=== PATIENT | male | born 1940 | race Caucasian/White ===

== ENCOUNTER 2018-01-10 07:16 | Outpatient (CLI) | payer OTHER ==
[~2018-01-10 07:16] MED LIST: ASA81 MG PO; ATENOLOL25 MG PO; DIOVAN HCT 320/1 TA1 PO; DIOVAN HCT 320/1 TA2; LIPITOR20 MG; OMEPRAZOLE20 MG PO; PLAVIX75 MG; SIMVASTATIN5 MG PO; TOPROL XL100 MG
== END 2018-01-10 07:31 | disposition home or self-care (01) ==
LOC: LAB 07:16
DX: I11.9 Hypertensive heart disease without heart failure (principal); E78.2 Mixed hyperlipidemia; E03.8 Other specified hypothyroidism; E11.9 Type 2 diabetes mellitus without complications

== ENCOUNTER 2018-01-24 08:42 | Outpatient (CLI) | payer OTHER | END 2018-01-24 09:07 | disposition home or self-care (01) | LOC: LAB 08:42 | DX: C18.0 Malignant neoplasm of cecum (principal); D64.89 Other specified anemias; D12.0 Benign neoplasm of cecum; C20 Malignant neoplasm of rectum ==

== ENCOUNTER 2018-04-29 06:26 | Outpatient (CLI) | payer OTHER | END 2018-04-29 06:33 | disposition home or self-care (01) | LOC: LAB 06:26 | DX: D50.8 Other iron deficiency anemias (principal); E03.8 Other specified hypothyroidism; E78.2 Mixed hyperlipidemia; I11.9 Hypertensive heart disease without heart failure; E56.8 Deficiency of other vitamins; N39.0 Urinary tract infection, site not specified; Z12.11 Encounter for screening for malignant neoplasm of colon; R19.5 Other fecal abnormalities; E55.9 Vitamin D deficiency, unspecified; N19 Unspecified kidney failure; E11.9 Type 2 diabetes mellitus without complications; R80.8 Other proteinuria ==

== ENCOUNTER 2018-07-21 10:21 | Outpatient (CLI) | payer OTHER | END 2018-07-21 16:00 | disposition home or self-care (01) | LOC: SONOGRAMA 10:21 | DX: M25.521 Pain in right elbow (principal); M25.511 Pain in right shoulder ==

== ENCOUNTER 2018-07-25 07:05 | Outpatient (CLI) | payer OTHER | END 2018-07-25 10:47 | disposition home or self-care (01) | LOC: LAB 07:05 | DX: D50.8 Other iron deficiency anemias (principal); E03.8 Other specified hypothyroidism; E78.2 Mixed hyperlipidemia; I11.9 Hypertensive heart disease without heart failure; E56.8 Deficiency of other vitamins; N39.0 Urinary tract infection, site not specified; Z12.11 Encounter for screening for malignant neoplasm of colon; R19.5 Other fecal abnormalities; E55.9 Vitamin D deficiency, unspecified; N19 Unspecified kidney failure; E11.9 Type 2 diabetes mellitus without complications; R80.8 Other proteinuria; K92.1 Melena ==

== ENCOUNTER 2018-07-27 11:38 | Outpatient (CLI) | payer OTHER | END 2018-07-27 11:40 | disposition home or self-care (01) | LOC: LAB 11:38 | DX: D50.8 Other iron deficiency anemias (principal); E03.8 Other specified hypothyroidism; E78.2 Mixed hyperlipidemia; I11.9 Hypertensive heart disease without heart failure; E56.8 Deficiency of other vitamins; N39.0 Urinary tract infection, site not specified; Z12.11 Encounter for screening for malignant neoplasm of colon; R19.5 Other fecal abnormalities; E55.9 Vitamin D deficiency, unspecified; N19 Unspecified kidney failure; E11.9 Type 2 diabetes mellitus without complications; R80.8 Other proteinuria; K92.1 Melena ==

== ENCOUNTER 2018-11-28 07:26 | Outpatient (CLI) | payer OTHER | END 2018-11-28 07:36 | disposition home or self-care (01) | LOC: LAB 07:26 | DX: D50.8 Other iron deficiency anemias (principal); E03.8 Other specified hypothyroidism; E78.2 Mixed hyperlipidemia; I11.9 Hypertensive heart disease without heart failure; E56.8 Deficiency of other vitamins; N39.0 Urinary tract infection, site not specified; Z12.11 Encounter for screening for malignant neoplasm of colon; R19.5 Other fecal abnormalities; E55.9 Vitamin D deficiency, unspecified; N19 Unspecified kidney failure; E11.9 Type 2 diabetes mellitus without complications; R80.8 Other proteinuria; C18.8 Malignant neoplasm of overlapping sites of colon; K92.1 Melena ==

== ENCOUNTER 2019-03-04 06:46 | Outpatient (CLI) | payer OTHER | END 2019-03-04 06:52 | disposition home or self-care (01) | LOC: LAB 06:46 | DX: D50.8 Other iron deficiency anemias (principal); E03.8 Other specified hypothyroidism; E78.2 Mixed hyperlipidemia; I11.9 Hypertensive heart disease without heart failure; E56.8 Deficiency of other vitamins; N39.0 Urinary tract infection, site not specified; Z12.11 Encounter for screening for malignant neoplasm of colon; E55.9 Vitamin D deficiency, unspecified; N19 Unspecified kidney failure; E11.9 Type 2 diabetes mellitus without complications; R80.8 Other proteinuria; C18.0 Malignant neoplasm of cecum; K92.1 Melena ==

== ENCOUNTER 2019-03-04 07:45 | Outpatient (CLI) | payer OTHER | END 2019-03-04 07:49 | disposition home or self-care (01) | LOC: RAD 07:45 | DX: I11.9 Hypertensive heart disease without heart failure (principal); R06.02 Shortness of breath ==

== ENCOUNTER 2019-06-05 07:13 | Outpatient (CLI) | payer OTHER | END 2019-06-05 07:28 | disposition home or self-care (01) | LOC: LAB 07:13 | DX: D50.8 Other iron deficiency anemias (principal); E03.8 Other specified hypothyroidism; E78.2 Mixed hyperlipidemia; I11.9 Hypertensive heart disease without heart failure; E56.8 Deficiency of other vitamins; N39.0 Urinary tract infection, site not specified; Z12.11 Encounter for screening for malignant neoplasm of colon; R19.5 Other fecal abnormalities; E55.9 Vitamin D deficiency, unspecified; N19 Unspecified kidney failure; E11.9 Type 2 diabetes mellitus without complications; R80.8 Other proteinuria; C18.0 Malignant neoplasm of cecum ==

== ENCOUNTER → 2019-09-04 07:29 | Outpatient (CLI) | payer OTHER | END | disposition home or self-care (01) | LOC: LAB 07:29 | DX: D50.8 Other iron deficiency anemias (principal); E03.8 Other specified hypothyroidism; E78.2 Mixed hyperlipidemia; I11.9 Hypertensive heart disease without heart failure; E56.8 Deficiency of other vitamins; N39.0 Urinary tract infection, site not specified; Z12.11 Encounter for screening for malignant neoplasm of colon; E55.9 Vitamin D deficiency, unspecified; N19 Unspecified kidney failure; E11.9 Type 2 diabetes mellitus without complications; R80.8 Other proteinuria; C18.0 Malignant neoplasm of cecum; K92.1 Melena ==

== ENCOUNTER 2019-12-04 07:13 | Outpatient (CLI) | payer OTHER | END 2019-12-04 07:20 | disposition home or self-care (01) | LOC: LAB 07:13 | DX: D50.8 Other iron deficiency anemias (principal); E03.8 Other specified hypothyroidism; E78.2 Mixed hyperlipidemia; I11.9 Hypertensive heart disease without heart failure; E56.8 Deficiency of other vitamins; N39.0 Urinary tract infection, site not specified; Z12.11 Encounter for screening for malignant neoplasm of colon; N19 Unspecified kidney failure; E11.9 Type 2 diabetes mellitus without complications; R80.8 Other proteinuria; C18.0 Malignant neoplasm of cecum; K92.1 Melena ==

== ENCOUNTER 2020-03-04 07:27 | Outpatient (CLI) | payer OTHER | END 2020-03-04 07:36 | disposition home or self-care (01) | LOC: LAB 07:27 | DX: D50.8 Other iron deficiency anemias (principal); E03.8 Other specified hypothyroidism; E78.2 Mixed hyperlipidemia; I11.9 Hypertensive heart disease without heart failure; E56.8 Deficiency of other vitamins; N39.0 Urinary tract infection, site not specified; Z12.11 Encounter for screening for malignant neoplasm of colon; E55.9 Vitamin D deficiency, unspecified; N19 Unspecified kidney failure; E11.9 Type 2 diabetes mellitus without complications; R80.8 Other proteinuria; C18.0 Malignant neoplasm of cecum; K92.1 Melena; B99.8 Other infectious disease ==

== ENCOUNTER → 2020-03-28 06:53 | Outpatient (CLI) | payer OTHER | END | disposition home or self-care (01) | LOC: LAB 06:53 | DX: N39.0 Urinary tract infection, site not specified (principal) ==

== ENCOUNTER 2020-04-14 07:02 | Outpatient (CLI) | payer OTHER | END 2020-04-14 07:08 | disposition home or self-care (01) | LOC: LAB 07:02 | PROVIDERS: ATTEND Internal Medicine Geriatric Medicine | DX: N39.0 Urinary tract infection, site not specified (principal) ==

== ENCOUNTER → 2020-06-01 07:07 | Outpatient (CLI) | payer OTHER | END | disposition home or self-care (01) | LOC: LAB 07:07 | PROVIDERS: ATTEND Internal Medicine Geriatric Medicine | DX: R80.8 Other proteinuria (principal); D50.8 Other iron deficiency anemias; E03.8 Other specified hypothyroidism; E78.2 Mixed hyperlipidemia; I11.9 Hypertensive heart disease without heart failure; E56.8 Deficiency of other vitamins; N39.0 Urinary tract infection, site not specified; Z12.11 Encounter for screening for malignant neoplasm of colon; E55.9 Vitamin D deficiency, unspecified; N19 Unspecified kidney failure; E11.9 Type 2 diabetes mellitus without complications; K92.1 Melena ==

== ENCOUNTER 2020-09-04 06:25 | Outpatient (CLI) | payer OTHER | END 2020-09-04 06:30 | disposition home or self-care (01) | LOC: LAB 06:25 | PROVIDERS: ATTEND Internal Medicine Geriatric Medicine | DX: D50.8 Other iron deficiency anemias (principal); E03.8 Other specified hypothyroidism; E78.2 Mixed hyperlipidemia; I11.9 Hypertensive heart disease without heart failure; E56.8 Deficiency of other vitamins; N39.0 Urinary tract infection, site not specified; Z12.11 Encounter for screening for malignant neoplasm of colon; E55.9 Vitamin D deficiency, unspecified; N19 Unspecified kidney failure; E11.9 Type 2 diabetes mellitus without complications; R80.8 Other proteinuria; C18.9 Malignant neoplasm of colon, unspecified; K92.1 Melena ==

== ENCOUNTER 2020-09-28 01:46 | Emergency (ER) | payer OTHER ==
[~2020-09-28] VITALS: Ht 170.2 cm; Wt 98.0 kg
[2020-09-28] MEDS ORDERED: MUPIROCIN22 GM TOP (03:14)
[2020-09-28] MEDS ORDERED: DUI500 PO (03:14)
== END 2020-09-28 03:25 | disposition home or self-care (01) ==
LOC: ER 01:46
DX: L03.011 Cellulitis of right finger (principal); L02.511 Cutaneous abscess of right hand

== ENCOUNTER 2020-12-02 07:52 | Outpatient (CLI) | payer OTHER ==
[~2020-12-02 07:52] MED LIST changes: +DUI500 PO; +MUPIROCIN22 GM TOP
== END 2020-12-02 07:57 | disposition home or self-care (01) ==
LOC: LAB 07:52
PROVIDERS: ATTEND Internal Medicine Geriatric Medicine
DX: D50.8 Other iron deficiency anemias (principal); E03.8 Other specified hypothyroidism; E78.2 Mixed hyperlipidemia; I11.9 Hypertensive heart disease without heart failure; E56.8 Deficiency of other vitamins; N39.0 Urinary tract infection, site not specified; Z12.11 Encounter for screening for malignant neoplasm of colon; E55.9 Vitamin D deficiency, unspecified; N19 Unspecified kidney failure; E11.9 Type 2 diabetes mellitus without complications; R80.8 Other proteinuria; C18.0 Malignant neoplasm of cecum; K92.1 Melena

== ENCOUNTER → 2021-01-15 | Outpatient (CLI) | payer OTHER | END | disposition home or self-care (01) | LOC: PPH VACUNA | PROVIDERS: ATTEND Emergency Medicine Pediatric Emergency Medicine | DX: Z23 Encounter for immunization (principal) ==

== ENCOUNTER 2021-02-05 17:40 | Outpatient (CLI) | payer OTHER | END 2021-02-05 17:41 | disposition home or self-care (01) | LOC: PPH VACUNA 17:40 | PROVIDERS: ATTEND Emergency Medicine Pediatric Emergency Medicine | DX: Z23 Encounter for immunization (principal) ==

== ENCOUNTER 2021-03-06 06:34 | Outpatient (CLI) | payer OTHER | END 2021-03-06 15:00 | disposition home or self-care (01) | LOC: LAB 06:34 | PROVIDERS: ATTEND Internal Medicine Geriatric Medicine | DX: D50.9 Iron deficiency anemia, unspecified (principal); E03.9 Hypothyroidism, unspecified; E78.2 Mixed hyperlipidemia; I11.9 Hypertensive heart disease without heart failure; E56.8 Deficiency of other vitamins; N39.0 Urinary tract infection, site not specified; Z12.11 Encounter for screening for malignant neoplasm of colon; E55.9 Vitamin D deficiency, unspecified; N19 Unspecified kidney failure; E11.9 Type 2 diabetes mellitus without complications; R80.9 Proteinuria, unspecified; C18.9 Malignant neoplasm of colon, unspecified; K92.1 Melena ==

== ENCOUNTER 2021-06-02 07:26 | Outpatient (CLI) | payer OTHER | END 2021-06-02 07:33 | disposition home or self-care (01) | LOC: LAB 07:26 | PROVIDERS: ATTEND Internal Medicine Geriatric Medicine | DX: D50.8 Other iron deficiency anemias (principal); E03.8 Other specified hypothyroidism; E78.2 Mixed hyperlipidemia; I11.9 Hypertensive heart disease without heart failure; E56.8 Deficiency of other vitamins; N39.0 Urinary tract infection, site not specified; Z12.11 Encounter for screening for malignant neoplasm of colon; E55.9 Vitamin D deficiency, unspecified; N19 Unspecified kidney failure; E11.9 Type 2 diabetes mellitus without complications; R80.8 Other proteinuria; C18.0 Malignant neoplasm of cecum; K92.1 Melena ==

== ENCOUNTER 2021-09-01 07:34 | Outpatient (CLI) | payer OTHER | END 2021-09-01 07:39 | disposition home or self-care (01) | LOC: LAB 07:34 | PROVIDERS: ATTEND Internal Medicine Geriatric Medicine | DX: D50.8 Other iron deficiency anemias (principal); E03.8 Other specified hypothyroidism; E78.2 Mixed hyperlipidemia; I11.9 Hypertensive heart disease without heart failure; E56.8 Deficiency of other vitamins; N39.0 Urinary tract infection, site not specified; Z12.11 Encounter for screening for malignant neoplasm of colon; R19.5 Other fecal abnormalities; E55.9 Vitamin D deficiency, unspecified; N19 Unspecified kidney failure; E11.9 Type 2 diabetes mellitus without complications ==

== ENCOUNTER 2021-11-06 09:00 | Outpatient (CLI) | payer OTHER | END 2021-11-06 09:30 | disposition home or self-care (01) | LOC: PPH VACUNA 09:00 | PROVIDERS: ATTEND Emergency Medicine Pediatric Emergency Medicine | DX: Z23 Encounter for immunization (principal) ==

== ENCOUNTER 2021-12-07 07:28 | Outpatient (CLI) | payer OTHER | END 2021-12-07 07:29 | disposition home or self-care (01) | LOC: LAB 07:28 | PROVIDERS: ATTEND Internal Medicine Geriatric Medicine | DX: D50.8 Other iron deficiency anemias (principal); E03.8 Other specified hypothyroidism; E78.2 Mixed hyperlipidemia; I11.9 Hypertensive heart disease without heart failure; E56.8 Deficiency of other vitamins; N39.0 Urinary tract infection, site not specified; Z12.11 Encounter for screening for malignant neoplasm of colon; R19.5 Other fecal abnormalities; E55.9 Vitamin D deficiency, unspecified; N19 Unspecified kidney failure; E11.9 Type 2 diabetes mellitus without complications; R80.8 Other proteinuria ==

== ENCOUNTER 2022-03-05 06:39 | Outpatient (CLI) | payer OTHER | END 2022-03-05 06:45 | disposition home or self-care (01) | LOC: LAB 06:39 | PROVIDERS: ATTEND Internal Medicine Geriatric Medicine | DX: D50.9 Iron deficiency anemia, unspecified (principal); E03.9 Hypothyroidism, unspecified; E78.2 Mixed hyperlipidemia; I11.9 Hypertensive heart disease without heart failure; E56.8 Deficiency of other vitamins; N39.0 Urinary tract infection, site not specified; Z12.11 Encounter for screening for malignant neoplasm of colon; R19.5 Other fecal abnormalities; E55.9 Vitamin D deficiency, unspecified; N19 Unspecified kidney failure; E11.9 Type 2 diabetes mellitus without complications; R80.9 Proteinuria, unspecified ==

== ENCOUNTER 2022-03-06 11:43 | Outpatient (CLI) | payer OTHER | END 2022-03-06 11:44 | disposition home or self-care (01) | LOC: LAB 11:43 | PROVIDERS: ATTEND Internal Medicine Geriatric Medicine | DX: D50.9 Iron deficiency anemia, unspecified (principal); E03.9 Hypothyroidism, unspecified; E78.2 Mixed hyperlipidemia; I11.9 Hypertensive heart disease without heart failure; E66.8 Other obesity; N39.0 Urinary tract infection, site not specified; Z12.11 Encounter for screening for malignant neoplasm of colon; R19.5 Other fecal abnormalities; E55.9 Vitamin D deficiency, unspecified; N19 Unspecified kidney failure; E11.9 Type 2 diabetes mellitus without complications; R80.9 Proteinuria, unspecified ==

== ENCOUNTER 2022-06-01 07:20 | Outpatient (CLI) | payer OTHER | END 2022-06-01 07:24 | disposition home or self-care (01) | LOC: LAB 07:20 | PROVIDERS: ATTEND Internal Medicine Geriatric Medicine | DX: D50.9 Iron deficiency anemia, unspecified (principal); E03.9 Hypothyroidism, unspecified; E78.2 Mixed hyperlipidemia; I11.9 Hypertensive heart disease without heart failure; E56.8 Deficiency of other vitamins; N39.0 Urinary tract infection, site not specified; R19.5 Other fecal abnormalities; E55.9 Vitamin D deficiency, unspecified; N19 Unspecified kidney failure; E11.9 Type 2 diabetes mellitus without complications; R80.9 Proteinuria, unspecified; Z12.11 Encounter for screening for malignant neoplasm of colon ==

== ENCOUNTER → 2022-12-12 06:31 | Outpatient (CLI) | payer OTHER | END | disposition home or self-care (01) | LOC: LAB 06:31 | PROVIDERS: ATTEND Internal Medicine Geriatric Medicine | DX: D50.9 Iron deficiency anemia, unspecified (principal); E03.9 Hypothyroidism, unspecified; E78.2 Mixed hyperlipidemia; I11.9 Hypertensive heart disease without heart failure; E56.8 Deficiency of other vitamins; N39.0 Urinary tract infection, site not specified; Z12.11 Encounter for screening for malignant neoplasm of colon; R19.5 Other fecal abnormalities; E55.9 Vitamin D deficiency, unspecified; N19 Unspecified kidney failure; E11.9 Type 2 diabetes mellitus without complications ==

== ENCOUNTER → 2023-03-10 06:48 | Outpatient (CLI) | payer OTHER | END | disposition home or self-care (01) | LOC: LAB 06:48 | PROVIDERS: ATTEND Internal Medicine Geriatric Medicine | DX: D50.9 Iron deficiency anemia, unspecified (principal); E03.9 Hypothyroidism, unspecified; I11.9 Hypertensive heart disease without heart failure; E78.2 Mixed hyperlipidemia; E56.8 Deficiency of other vitamins; N39.0 Urinary tract infection, site not specified; E55.9 Vitamin D deficiency, unspecified; R19.5 Other fecal abnormalities; N19 Unspecified kidney failure; E11.9 Type 2 diabetes mellitus without complications ==

== ENCOUNTER → 2023-06-16 07:04 | Outpatient (CLI) | payer OTHER | END | disposition home or self-care (01) | LOC: LAB 07:04 | PROVIDERS: ATTEND Internal Medicine Geriatric Medicine | DX: D50.9 Iron deficiency anemia, unspecified (principal); E03.9 Hypothyroidism, unspecified; E78.2 Mixed hyperlipidemia; I11.9 Hypertensive heart disease without heart failure; E56.8 Deficiency of other vitamins; N39.0 Urinary tract infection, site not specified; Z12.11 Encounter for screening for malignant neoplasm of colon; R19.5 Other fecal abnormalities; E55.9 Vitamin D deficiency, unspecified; N19 Unspecified kidney failure; E11.9 Type 2 diabetes mellitus without complications ==

== ENCOUNTER → 2023-06-18 11:45 | Outpatient (CLI) | payer OTHER | END | disposition home or self-care (01) | LOC: LAB 11:45 | PROVIDERS: ATTEND Internal Medicine Geriatric Medicine | DX: Z12.11 Encounter for screening for malignant neoplasm of colon (principal) ==

== ENCOUNTER 2023-09-13 07:34 | Outpatient (CLI) | payer OTHER ==
[2023-09-13 09:09] LABS: HEMATOCRIT 43.6 % (39.0-48.0); HEMOGLOBIN 15.1 g/dL (13-16.00); MEAN CELL VOLUME 89.4 fL (80.0-100.00); MEAN CORPUSCULAR HGB CONC 34.7 g/dl (32.0-36.0); PLATELET COUNT 200 K/uL (150-450); RED BLOOD COUNT 4.88 M/uL (4.00-6.00); RED CELL DISTRIBUTION WIDTH 13.8 % (11.5-14.5)
[2023-09-13 10:33] LABS: ALBUMIN 3.7 gm/dL (3.4-5.0); BILIRUBIN TOTAL 0.95 mg/dL (0.3-1.2); CALCIUM 9.1 mg/dL (8.5-10.1); CHOL HDL RATIO 2.6 (0-5.0); CREATININE SERUM 1.22 mg/dL (0.70-1.30); GFR 56.87; GLOBULINA 3.2 G/DL (2.4-3.5); POTASSIUM 3.85 mEq/L (3.5-5.1); TOTAL PROTEIN 6.9 gm/dL (6.4-8.2); TSH 1.51 uIU/mL (0.358-3.74)
[2023-09-13 12:11] LABS: URINE APPEARANCE Clear; URINE BILIRRUBIN Negative (NEGATIVE); URINE BLOOD Negative; URINE COLOR Yellow; URINE GLUCOSE Negative (NEGATIVE); URINE LEUKOCYTE Negative; URINE NITRATE Negative; URINE PROTEIN Negative (NEGATIVE)
[2023-09-13 12:52] LABS: URINE BACTERIA 26.4 uL (0.0-1933); URINE RBC 3.5 uL (0.0-20.8); URINE WBC 6.1 uL (0.0-23.2)
[2023-09-13 12:56] LABS: URINE EPITHELIAL CELLS 0.7 uL (0.0-38.8)
== END 2023-09-13 07:35 | disposition home or self-care (01) ==
LOC: LAB 07:34
PROVIDERS: ATTEND Internal Medicine Geriatric Medicine
DX: D50.9 Iron deficiency anemia, unspecified (principal); E03.9 Hypothyroidism, unspecified; E78.2 Mixed hyperlipidemia; I11.9 Hypertensive heart disease without heart failure; E56.8 Deficiency of other vitamins; N39.0 Urinary tract infection, site not specified; Z12.11 Encounter for screening for malignant neoplasm of colon; R19.5 Other fecal abnormalities; E55.9 Vitamin D deficiency, unspecified; N19 Unspecified kidney failure; E11.9 Type 2 diabetes mellitus without complications

== ENCOUNTER 2023-12-20 07:04 | Outpatient (CLI) | payer OTHER ==
[2023-12-20 08:17] LABS: PH,URINE 7.5 (5.0-8.0); URINE APPEARANCE Clear; URINE BILIRRUBIN Negative (NEGATIVE); URINE BLOOD Negative; URINE COLOR Yellow; URINE GLUCOSE Negative (NEGATIVE); URINE LEUKOCYTE Negative; URINE NITRATE Negative; URINE PROTEIN Negative (NEGATIVE); URINE UROBILINOGEN 0.2 E.U./dl
[2023-12-20 08:23] LABS: URINE BACTERIA 17.6 uL (0.0-1933); URINE RBC 17.2 uL (0.0-20.8)
[2023-12-20 09:03] LABS: URINE WBC 1.6 uL (0.0-23.2)
[2023-12-20 09:10] LABS: HEMOGLOBIN 15.5 g/dL (13-16.00); MEAN CELL VOLUME 90.5 fL (80.0-100.00); MEAN CORPUSCULAR HEMOGLOBIN 30.4 pg (27.00-32.0); MEAN CORPUSCULAR HGB CONC 33.6 g/dl (32.0-36.0); PLATELET COUNT 203 K/uL (150-450); RED BLOOD COUNT 5.09 M/uL (4.00-6.00); RED CELL DISTRIBUTION WIDTH 14.1 % (11.5-14.5)
[2023-12-20 09:33] LABS: ALBUMIN 4.1 gm/dL (3.4-5.0); CALCIUM 9.4 mg/dL (8.5-10.1); CHOL HDL RATIO 2.5 (0-5.0); CREATININE SERUM 1.27 mg/dL (0.70-1.30); GFR 54.29; GLOBULINA 2.9 G/DL (2.4-3.5); POTASSIUM 4.2 mEq/L (3.5-5.1); TSH 1.64 uIU/mL (0.358-3.74)
== END 2023-12-20 07:13 | disposition home or self-care (01) ==
LOC: LAB 07:04
PROVIDERS: ATTEND Internal Medicine Geriatric Medicine
DX: D50.9 Iron deficiency anemia, unspecified (principal); E03.9 Hypothyroidism, unspecified; E78.2 Mixed hyperlipidemia; I11.9 Hypertensive heart disease without heart failure; E56.8 Deficiency of other vitamins; N39.0 Urinary tract infection, site not specified; Z12.11 Encounter for screening for malignant neoplasm of colon; R19.5 Other fecal abnormalities; E55.9 Vitamin D deficiency, unspecified; N19 Unspecified kidney failure; E11.9 Type 2 diabetes mellitus without complications

== ENCOUNTER 2025-08-30 21:01 | Inpatient (IN) | payer OTHER ==
[~2025-08-30] VITALS: Ht 170.2 cm; Wt 108.9 kg
--- NOTE | 2025-08-30 21:24 | NUR ---
SE REALIZA EKG Y SE UBICA A PACIENTE EN CAMA #1 DE ICU 2, SE CONECTA A MONITOR CARDIACO, OXIMETRIA DE PULSO Y SE NOTIFICA A .
--- NOTE | 2025-08-30 21:24 | NUR ---
SE RECIBE PACIENTE ALERTA Y ORIENTADO X 3 ESFERAS EN AMBULANCIA EN COMPANIA DE PARAMEDICOS LOS CUALES INDICAN QUE FAMILIAR DE PACIENTE LLAMO LA AMBULANCIA PORQUE PACIENTE SUFRIO OSCAR CAIDA EN CASE HOGAR. PARAMEDICOS INDICAN QUE AL LLEGAR PACIENTE ESTABA EN EL SUELO Y PRESENTABA DIFICULTAD AL RESPIRAR. REFIEREN QUE ADMINISTRAR ATROVENT, SOLUMEDROL 125MG Y VASOTEC 1.25MG POR VENOPUNCION EN BRAZO DERECHO.
[2025-08-30] MEDS ORDERED: IPRATROPIUM BROMIDE 0.5 MG/2.5 ML AMPUL.NEB IH SCH (21:40)
[2025-08-30] MEDS ORDERED: LEVALBUTEROL HCL 1.25 MG/3 ML SOLUTION IH SCH (21:40)
[2025-08-30] MEDS ORDERED: INSULIN LISPRO 1,000 UNIT/10 ML UNITS SUBCUTANEO PRN (21:45)
[2025-08-30] MEDS ORDERED: LORazepam 2 MG/ML VIAL IV PRN (21:45)
[2025-08-30] MEDS ORDERED: THIAMINE HCL 100 MG/ML 2 ML VIAL IV ONE (21:45)
[2025-08-30] MEDS ORDERED: FAMOtidine 10 MG/ML (4ML VIAL) IV ONE (21:45)
[2025-08-30] MEDS ORDERED: MULTIVIT INFUSN,ADULT 4,VIT K 10 ML VIAL IV ONE (21:45)
[2025-08-30] MEDS ORDERED: FOLIC ACID 5 MG/ML VIAL IV ONE (21:45)
[2025-08-30] MEDS ORDERED: CEFTRIAXONE SODIUM 1,000 MG VIAL IV ONE (21:45)
[2025-08-30 21:57] LABS: BASO % 0.6 % (0.1-1.2); EOS # 0.24 (0.04-0.54); EOS % 3.6 % (0.7-7.0); LYMPH # 1.43 (1.18-3.74); LYMPH % 21.6 % (19.3-53.1); MEAN PLATELET VOLUME 10.00 fl (9.4-12.4); MONO # 0.55 (0.24-0.82); MONO % 8.3 % (4.7-12.5); NEUT # 4.32 (1.56-6.13); NEUT % 65.4 % (34.0-71.1); RED CELL DISTRIBUTION WIDTH 14.1 % (11.6-14.4)
[2025-08-30 22:17] LABS: INR 1.07
[2025-08-30 22:23] LABS: ALT/SGPT 31.0 U/L (12-78); AST/SGOT 36.0 U/L (15-37); BILIRUBIN TOTAL 0.95 mg/dL (0.3-1.2); BUN CREA RATIO 5.0 (7.0-25.0); CREATININE SERUM 1.05 mg/dL (0.70-1.30); GFR 67.29; GLOBULINA 3.0 G/DL (2.4-3.5); GLUCOSE FASTING 103.0 mg/dL (65-100); OSMOLALITY SERUM 284.0 MOSM/KG (275-295)
[2025-08-30] MEDS ORDERED: NITROGLYCERIN IN 5 % DEXTROSE 250 ML IV SCH (22:42)
[2025-08-30] MEDS ORDERED: TICAGRELOR 90 MG TABLET PO ONE (22:45)
--- NOTE | 2025-08-30 22:48 | NUR ---
SE RECIBE PACIENTE EN AREA DE ICU #2, ALERTA Y ORIENTADO X3. SE COLOCA EN CAMA #1 POR SAMSON ABBOTT RN. ESTA CONECTA A MONITOR CARDICO CON SATUROMETRO, CANULA NASAL A 3 LITROS Y COLECTA MUESTRAS CON MEDIDAS ASEPTICAS CORRESPONDIENTES. BARANDAS ELEVADAS POR CASE SEGURIDAD. SE MONITOREA POR CAMBIOS SIGNIFICATIVOS.
[2025-08-30] MEDS ORDERED: THIAMINE HCL 100 MG/ML 2 ML VIAL ONE (23:10)
[2025-08-30] MEDS ORDERED: FAMOTIDINE/PF 20 MG/2 ML VIAL ONE ×2 (23:11→23:31)
[2025-08-30] MEDS ORDERED: CEFTRIAXONE SODIUM 1,000 MG VIAL ONE (23:11)
[2025-08-31] VITALS (11 sets, daily range): BP systolic 115–169; BP diastolic 73–92; O2SAT 93–97
--- NOTE | 2025-08-31 00:12 | NUR ---
2300 SE RECIBE A PTE EN ICU 2 CAMA 1. SE OBSERVA A PTE EN POSICION SEMI-PANDEY. SE OBSERVA A PTE CONECTADO A MONITOR CARDIACO Y OXIMETRIA DE PULSO. PTE CON ZEINA INTACTO CON N/C A 3 LT/MIN. SE ON VENOPUNCION PATENTE EN MANO RT. RECIBIENDO IVF. 2330 SE ADMINISTRA MEDICAMENTO SHANA ORDEN MEDICA Y BAJO MEDIDAS ASEPTICAS. NO SE OBSERVA REACCION ADVERSA AL MOMENTO. SE NOTIFICA TERAPIAS PENDIENTES A TR. PTE PENDIENTE A CT.
[2025-08-31] MEDS ORDERED: LEVALBUTEROL HCL 0.63 MG/3 ML SOLUTION IH ONE (00:14)
[2025-08-31 00:17] LABS: COVID-19 AG NEGATIVE (NEGATIVE)
[2025-08-31] MEDS ORDERED: NITROGLYCERIN IN 5 % DEXTROSE 50 MG/250 ML BOTTLE IV ONE (01:19)
[2025-08-31 01:24] LABS: URINE APPEARANCE Clear; URINE BILIRRUBIN Negative (NEGATIVE); URINE BLOOD Negative; URINE COLOR Yellow; URINE GLUCOSE Negative (NEGATIVE); URINE KETONE Negative (NEGATIVE); URINE LEUKOCYTE Negative; URINE NITRATE Negative; URINE PROTEIN Negative (NEGATIVE); URINE UROBILINOGEN 1.0 E.U./dl
[2025-08-31 01:30] LABS: URINE BACTERIA 17.9 uL (0.0-1933)
[2025-08-31 01:35] LABS: URINE EPITHELIAL CELLS 1.3 uL (0.0-38.8); URINE RBC 1.4 uL (0.0-20.8); URINE WBC 1.3 uL (0.0-23.2)
[2025-08-31 01:36] LABS: URINE CAST 0.14 uL (0.0-1.40)
[2025-08-31 02:25] LABS: COCAINE NEGATIVE (NEGATIVE); METHADONE NEGATIVE (NEGATIVE); OPIATES NEGATIVE (NEGATIVE); THC ( Cannabinoids) NEGATIVE (NEGATIVE)
--- NOTE | 2025-08-31 07:00 | NUR ---
SE RECIBE PTE ALERTA, DESORIENTADO Y COMBATIVO. EN CAMA BAJA EN UNIDAD DE CRITICO. RN'S DE TURNO ANTERIOR INTERVINIENDO CON PTE YA QUE SE DESCANALIZO Y SE NENO EL CARDOZA. RN'S CANALIZAN [place], RESTRINGEN PTE SHANA ORDEN MEDICA E INSERTAN CARDOZA BAJO MEDIDAS ASEPTICAS. SE CONECTO [place] A MONITOR CARDIACO Y OXIMETRIA DE PULSO CONTINUA. PTE CON VENTURY MASK AL 50%. PTE RECIBIENDO POR BRAZO RT DRIP DE TRIDIL A 3MLS/HR. SE ADMINISTRA ATIVAN IV 2MG JUNTO A RN ARBIZU. SE MANTIENE EN OBSERVACION POR CAMBIOS
[2025-08-31] MEDS ORDERED: LORazepam 2 MG/ML VIAL ONE (07:05)
[2025-08-31] MEDS ORDERED: LEVALBUTEROL HCL 1.25 MG/3 ML SOLUTION IH ONE (08:56)
[2025-08-31] MEDS ORDERED: IPRATROPIUM BROMIDE 0.5 MG/2.5 ML AMPUL.NEB IH ONE (08:56)
[2025-08-31] MEDS ORDERED: HALOPERIDOL LACTATE 5 MG/ML AMPUL IM PRN (09:45)
[2025-08-31] MEDS ORDERED: ONDANSETRON HCL 2 MG/ML VIAL IV PRN (09:45)
[2025-08-31] MEDS ORDERED: PIPERACILLIN/TAZOBACTAM SODIUM 3.375 GM VIAL IV ONE (10:45)
[2025-08-31] MEDS ORDERED: PIPERACILLIN/TAZOBACTAM SODIUM 3.375 GM VIAL IV SCH (12:00)
[2025-08-31] MEDS ORDERED: HALOPERIDOL LACTATE 5 MG/ML AMPUL ONE (12:20)
[2025-08-31] MEDS ORDERED: IPRATROPIUM BROMIDE 0.5 MG/2.5 ML AMPUL.NEB IH SCH ×2 (13:00→14:33)
[2025-08-31] MEDS ORDERED: PERMETHRIN 60 GM TUBE TOP SCH (17:00)
[2025-08-31] MEDS ORDERED: VANCOMYCIN HCL 5 MG/ML REDILUIDO IV SCH (17:00)
[2025-08-31] MEDS ORDERED: NITROGLYCERIN IN 5 % DEXTROSE 250 ML IV SCH (19:00)
[2025-08-31] MEDS ORDERED: ENOXAPARIN SODIUM 100 MG/ML SYRINGE SUBCUTANEO SCH (21:00)
[2025-08-31] MEDS ORDERED: ENOXAPARIN SODIUM 80 MG/0.8 ML SYRINGE SUBCUTANEO SCH (21:00)
[2025-09-01] VITALS (12 sets, daily range): BP systolic 131–166; BP diastolic 70–100; O2SAT 90–98
[2025-09-01 06:37] LABS: BASO % 0.3 % (0.1-1.2); EOS # 0.01 (0.04-0.54); EOS % 0.1 % (0.7-7.0); LYMPH # 0.96 (1.18-3.74); LYMPH % 8.6 % (19.3-53.1); MEAN PLATELET VOLUME 10.40 fl (9.4-12.4); MONO # 0.97 (0.24-0.82); MONO % 8.7 % (4.7-12.5); NEUT # 9.19 (1.56-6.13); NEUT % 82.1 % (34.0-71.1); RED CELL DISTRIBUTION WIDTH 14.0 % (11.6-14.4)
[2025-09-01 07:02] LABS: ALT/SGPT 31.0 U/L (12-78); AST/SGOT 36.0 U/L (15-37); BILIRUBIN TOTAL 1.71 mg/dL (0.3-1.2); BUN CREA RATIO 10.0 (7.0-25.0); CREATININE SERUM 1.13 mg/dL (0.70-1.30); GFR 61.82; GLOBULINA 2.8 G/DL (2.4-3.5); GLUCOSE FASTING 128.0 mg/dL (65-100); LDH 350.0 U/L (87-241); OSMOLALITY SERUM 292.0 MOSM/KG (275-295)
[2025-09-01] MEDS ORDERED: ATENOLOL 25 MG TABLET PO SCH (09:00)
[2025-09-01] MEDS ORDERED: AMLODIPINE BESYLATE 5 MG TABLET PO SCH (09:00)
[2025-09-01] MEDS ORDERED: CLOPIDOGREL BISULFATE 75 MG TABLET PO SCH (09:00)
[2025-09-01] MEDS ORDERED: LOSARTAN POTASSIUM 100 MG TABLET PO SCH (09:00)
[2025-09-01] MEDS ORDERED: ATORVASTATIN CALCIUM 40 MG TABLET PO SCH (09:00)
[2025-09-01] MEDS ORDERED: ASPIRIN 325 MG TABLET PO SCH (09:00)
[2025-09-02] VITALS (8 sets, daily range): BP systolic 103–144; BP diastolic 58–90; O2SAT 88–99
[2025-09-02] MEDS ORDERED: THIAMINE HCL 100 MG/ML 2 ML VIAL IV SCH (17:00)
[2025-09-03] VITALS (9 sets, daily range): BP systolic 111–142; BP diastolic 60–74; O2SAT 93–100
[2025-09-03 06:59] LABS: BASO % 0.5 % (0.1-1.2); EOS # 0.08 (0.04-0.54); EOS % 0.7 % (0.7-7.0); LYMPH # 1.11 (1.18-3.74); LYMPH % 9.6 % (19.3-53.1); MEAN PLATELET VOLUME 10.80 fl (9.4-12.4); MONO # 1.01 (0.24-0.82); MONO % 8.7 % (4.7-12.5); NEUT # 9.27 (1.56-6.13); NEUT % 80.1 % (34.0-71.1); RED CELL DISTRIBUTION WIDTH 14.2 % (11.6-14.4)
[2025-09-03 08:37] LABS: ALT/SGPT 36.0 U/L (12-78); AST/SGOT 49.0 U/L (15-37); BILIRUBIN TOTAL 1.65 mg/dL (0.3-1.2); BUN CREA RATIO 13.0 (7.0-25.0); CREATININE SERUM 1.26 mg/dL (0.70-1.30); GFR 54.52; GLOBULINA 3.7 G/DL (2.4-3.5); GLUCOSE FASTING 124.0 mg/dL (65-100); OSMOLALITY SERUM 293.0 MOSM/KG (275-295)
[2025-09-04 01:33] VITALS: BP 160/85; O2SAT 96
[2025-09-04 09:19] VITALS: O2SAT 96
[2025-09-04 10:23] VITALS: BP 149/92; BP 180/60; O2SAT 95; O2SAT 97
[2025-09-04 12:17] VITALS: O2SAT 90
[2025-09-04 14:47] LABS: BASO % 0.2 % (0.1-1.2); EOS # 0.00 (0.04-0.54); EOS % 0.0 % (0.7-7.0); LYMPH # 0.91 (1.18-3.74); LYMPH % 5.4 % (19.3-53.1); MEAN PLATELET VOLUME 10.60 fl (9.4-12.4); MONO # 1.54 (0.24-0.82); MONO % 9.2 % (4.7-12.5); NEUT # 14.25 (1.56-6.13); NEUT % 84.8 % (34.0-71.1); RED CELL DISTRIBUTION WIDTH 13.9 % (11.6-14.4)
[2025-09-04 15:09] LABS: ALT/SGPT 41.0 U/L (12-78); AST/SGOT 52.0 U/L (15-37); BILIRUBIN TOTAL 1.45 mg/dL (0.3-1.2); BUN CREA RATIO 19.0 (7.0-25.0); CREATININE SERUM 1.63 mg/dL (0.70-1.30); GFR 40.51; GLOBULINA 3.4 G/DL (2.4-3.5); GLUCOSE FASTING 135.0 mg/dL (65-100); OSMOLALITY SERUM 307.0 MOSM/KG (275-295)
[2025-09-04 17:27] VITALS: O2SAT 98
[2025-09-04 19:21] VITALS: BP 150/80
[2025-09-04] MEDS ORDERED: QUETIAPINE FUMARATE 25 MG TABLET PO SCH (20:36)
[2025-09-05] VITALS (12 sets, daily range): BP systolic 60–160; BP diastolic 37–100; O2SAT 94–100
[2025-09-05 06:25] LABS: BASO % 0.3 % (0.1-1.2); EOS # 0.02 (0.04-0.54); EOS % 0.2 % (0.7-7.0); LYMPH # 1.31 (1.18-3.74); LYMPH % 10.5 % (19.3-53.1); MEAN PLATELET VOLUME 11.00 fl (9.4-12.4); MONO # 1.45 (0.24-0.82); MONO % 11.6 % (4.7-12.5); NEUT # 9.62 (1.56-6.13); NEUT % 76.8 % (34.0-71.1); RED CELL DISTRIBUTION WIDTH 13.6 % (11.6-14.4)
[2025-09-05 06:54] LABS: ALT/SGPT 39.0 U/L (12-78); AST/SGOT 45.0 U/L (15-37); BILIRUBIN TOTAL 1.23 mg/dL (0.3-1.2); BUN CREA RATIO 29.0 (7.0-25.0); CREATININE SERUM 1.5 mg/dL (0.70-1.30); GFR 44.59; GLOBULINA 3.1 G/DL (2.4-3.5); GLUCOSE FASTING 109.0 mg/dL (65-100)
[2025-09-05 07:55] LABS: OSMOLALITY SERUM 313.0 MOSM/KG (275-295)
[2025-09-05] MEDS ORDERED: NOREPINEPHRINE BITARTRATE 4 MG in DEXTROSE 5 % IN WATER 250 ML IV SCH (19:00)
[2025-09-05 20:41] LABS: BASO % 0.3 % (0.1-1.2); EOS # 0.02 (0.04-0.54); EOS % 0.1 % (0.7-7.0); LYMPH # 1.31 (1.18-3.74); LYMPH % 7.4 % (19.3-53.1); MEAN PLATELET VOLUME 10.90 fl (9.4-12.4); MONO # 2.42 (0.24-0.82); NEUT # 13.73 (1.56-6.13); NEUT % 77.8 % (34.0-71.1); RED CELL DISTRIBUTION WIDTH 13.6 % (11.6-14.4)
[2025-09-05 20:44] LABS: MONO % 13.7 % (4.7-12.5)
[2025-09-05 21:01] LABS: ALT/SGPT 41.0 U/L (12-78); AST/SGOT 53.0 U/L (15-37); BILIRUBIN TOTAL 1.23 mg/dL (0.3-1.2); BUN CREA RATIO 24.0 (7.0-25.0); CREATININE SERUM 2.21 mg/dL (0.70-1.30); GFR 28.51; GLOBULINA 3.1 G/DL (2.4-3.5); GLUCOSE FASTING 138.0 mg/dL (65-100); OSMOLALITY SERUM 314.0 MOSM/KG (275-295)
[2025-09-05] MEDS ORDERED: MIDAZOLAM HCL 2 MG/2 ML VIAL IV PUSH STA (21:37)
[2025-09-06] VITALS (18 sets, daily range): BP systolic 60–150; BP diastolic 37–75; O2SAT 96–100
[2025-09-06 00:41] LABS: BASO % 0.3 % (0.1-1.2); EOS # 0.00 (0.04-0.54); EOS % 0.0 % (0.7-7.0); LYMPH # 1.20 (1.18-3.74); LYMPH % 7.7 % (19.3-53.1); MEAN PLATELET VOLUME 11.00 fl (9.4-12.4); MONO # 1.68 (0.24-0.82); MONO % 10.7 % (4.7-12.5); NEUT # 12.61 (1.56-6.13); NEUT % 80.7 % (34.0-71.1); RED CELL DISTRIBUTION WIDTH 13.8 % (11.6-14.4)
[2025-09-06 01:26] LABS: ALT/SGPT 42.0 U/L (12-78); AST/SGOT 64.0 U/L (15-37); BILIRUBIN TOTAL 0.9 mg/dL (0.3-1.2); BUN CREA RATIO 21.0 (7.0-25.0); CREATININE SERUM 2.78 mg/dL (0.70-1.30); GFR 21.88; GLOBULINA 2.9 G/DL (2.4-3.5); GLUCOSE FASTING 145.0 mg/dL (65-100); OSMOLALITY SERUM 318.0 MOSM/KG (275-295)
[2025-09-06 03:05] LABS: URINE APPEARANCE Cloudy; URINE BILIRRUBIN Small (NEGATIVE); URINE BLOOD Large; URINE COLOR Orange; URINE GLUCOSE Negative (NEGATIVE); URINE KETONE Negative (NEGATIVE); URINE LEUKOCYTE Small; URINE NITRATE Negative; URINE UROBILINOGEN 0.2 E.U./dl
[2025-09-06 03:09] LABS: URINE BACTERIA 15.6 uL (0.0-1933); URINE EPITHELIAL CELLS 7.6 uL (0.0-38.8); URINE RBC 2364.4 uL (0.0-20.8); URINE WBC 35.0 uL (0.0-23.2)
[2025-09-06 03:31] LABS: URINE CAST 0.14 uL (0.0-1.40); URINE PROTEIN 100 (NEGATIVE)
[2025-09-06] MEDS ORDERED: VANCOMYCIN HCL 5 MG/ML REDILUIDO IV SCH (05:00)
[2025-09-06] MEDS ORDERED: POLYVINYL ALCOHOL 15 ML DROPS OP SCH (09:00)
[2025-09-06] MEDS ORDERED: CHLORHEXIDINE GLUCONATE 15ML BRUSH KIT MM SCH (09:00)
[2025-09-06] MEDS ORDERED: ANIDULAFUNGIN 100 MG VIAL IV ONE (20:30)
[2025-09-06] MEDS ORDERED: MEROPENEM 500 MG/VIAL VIAL IV SCH (21:00)
[2025-09-07 04:00] VITALS: BP 88/57; O2SAT 100
[2025-09-07 06:25] LABS: BASO % 0.3 % (0.1-1.2); EOS # 0.02 (0.04-0.54); EOS % 0.1 % (0.7-7.0); LYMPH # 1.37 (1.18-3.74); LYMPH % 10.1 % (19.3-53.1); MEAN PLATELET VOLUME 11.20 fl (9.4-12.4); MONO # 1.88 (0.24-0.82); NEUT # 10.18 (1.56-6.13); NEUT % 74.9 % (34.0-71.1); RED CELL DISTRIBUTION WIDTH 13.6 % (11.6-14.4)
[2025-09-07 06:43] LABS: MONO % 13.8 % (4.7-12.5)
[2025-09-07 07:14] VITALS: BP 101/70; O2SAT 100
[2025-09-07 08:07] LABS: ALT/SGPT 56.0 U/L (12-78); AST/SGOT 168.0 U/L (15-37); BILIRUBIN TOTAL 0.84 mg/dL (0.3-1.2); BUN CREA RATIO 23.0 (7.0-25.0); CREATININE SERUM 3.48 mg/dL (0.70-1.30); GFR 16.88; GLOBULINA 3.0 G/DL (2.4-3.5); GLUCOSE FASTING 100.0 mg/dL (65-100)
[2025-09-07 08:08] LABS: OSMOLALITY SERUM 331.0 MOSM/KG (275-295)
[2025-09-07 08:10] LABS: CKMB 10.6 NG/ML (0.5-3.6)
[2025-09-07] MEDS ORDERED: SODIUM CHLORIDE 0.45 % 1,000 ML IV SCH (08:30)
[2025-09-07] MEDS ORDERED: OCTREOTIDE ACETATE 1,000 MCG/5 ML VIAL IJ SCH (09:00)
[2025-09-07 09:34] LABS: CORTISOL 35.7 ug/dl
[2025-09-07] MEDS ORDERED: DEXTROSE 5%-WATER 1,000ML IV.SOLN IV SCH (10:00)
[2025-09-07] MEDS ORDERED: PANTOPRAZOLE SODIUM 80 MG in 0.9 % SODIUM CHLORIDE 100 ML IV SCH (10:15)
[2025-09-07] MEDS ORDERED: POTASSIUM CHLORIDE IN WATER 40 MEQ/100 ML PIGGYBAG IV NR (10:30)
[2025-09-07 12:00] VITALS: BP 106/53; O2SAT 97
[2025-09-07] MEDS ORDERED: OCTREOTIDE ACETATE 1,250 MCG in 0.9 % SODIUM CHLORIDE 250 ML IV SCH (12:00)
[2025-09-07 15:37] VITALS: BP 106/53; O2SAT 100
[2025-09-07] MEDS ORDERED: ANIDULAFUNGIN 100 MG VIAL IV SCH (17:00)
[2025-09-07] MEDS ORDERED: NYSTATIN 30 GM,SILVER SULFADIAZINE 50 GM,ZINC OXIDE 30 GM TOP SCH (17:59)
[2025-09-07 20:00] VITALS: BP 108/81; O2SAT 100
[2025-09-07 23:04] VITALS: BP 125/54; O2SAT 100
[2025-09-08 04:00] VITALS: BP 126/91; O2SAT 100
[2025-09-08 07:25] VITALS: BP 142/59; O2SAT 100
[2025-09-08 07:31] LABS: BASO % 0.4 % (0.1-1.2); EOS # 0.02 (0.04-0.54); EOS % 0.2 % (0.7-7.0); LYMPH # 1.37 (1.18-3.74); LYMPH % 11.0 % (19.3-53.1); MEAN PLATELET VOLUME 11.80 fl (9.4-12.4); MONO # 1.40 (0.24-0.82); MONO % 11.2 % (4.7-12.5); NEUT # 9.54 (1.56-6.13); NEUT % 76.6 % (34.0-71.1); RED CELL DISTRIBUTION WIDTH 13.7 % (11.6-14.4)
[2025-09-08 08:01] LABS: BUN CREA RATIO 33.0 (7.0-25.0); CREATININE SERUM 2.2 mg/dL (0.70-1.30); GFR 28.66
[2025-09-08 08:02] LABS: OSMOLALITY SERUM 334.0 MOSM/KG (275-295)
[2025-09-08 08:07] LABS: GLUCOSE FASTING 224.0 mg/dL (65-100)
[2025-09-08 12:00] VITALS: BP 115/91; O2SAT 100
[2025-09-08 15:07] VITALS: BP 113/72; O2SAT 100
[2025-09-08] MEDS ORDERED: PROPOFOL 100 ML IV SCH (18:00)
[2025-09-08 20:00] VITALS: BP 90/52; O2SAT 100
[2025-09-08 22:00] VITALS: BP 102/69; O2SAT 100
[2025-09-09] VITALS (8 sets, daily range): BP systolic 103–137; BP diastolic 52–897; O2SAT 98–100
[2025-09-09] MEDS ORDERED: VANCOMYCIN HCL 5 MG/ML REDILUIDO IV SCH (05:00)
[2025-09-09 06:52] LABS: BASO % 0.3 % (0.1-1.2); EOS # 0.12 (0.04-0.54); EOS % 1.1 % (0.7-7.0); LYMPH # 1.51 (1.18-3.74); LYMPH % 13.5 % (19.3-53.1); MEAN PLATELET VOLUME 11.90 fl (9.4-12.4); MONO # 1.23 (0.24-0.82); MONO % 11.0 % (4.7-12.5); NEUT # 8.23 (1.56-6.13); NEUT % 73.2 % (34.0-71.1); RED CELL DISTRIBUTION WIDTH 13.7 % (11.6-14.4)
[2025-09-09 08:07] LABS: ALT/SGPT 37.0 U/L (12-78); AST/SGOT 74.0 U/L (15-37); BILIRUBIN TOTAL 0.56 mg/dL (0.3-1.2); BUN CREA RATIO 37.0 (7.0-25.0); CREATININE SERUM 1.58 mg/dL (0.70-1.30); GFR 41.99; GLOBULINA 2.6 G/DL (2.4-3.5); GLUCOSE FASTING 199.0 mg/dL (65-100)
[2025-09-09 08:10] LABS: OSMOLALITY SERUM 322.0 MOSM/KG (275-295); PHOSPHOKINASE CREATININE 1016.0 U/L (39-308)
[2025-09-09] MEDS ORDERED: POTASSIUM CHLORIDE 20MEQ/100ML H2O PB IV NR (11:45)
[2025-09-09] MEDS ORDERED: RACEPINEPHRINE HCL 0.5 ML AMPUL IH ONE ×2 (11:49→12:30)
[2025-09-09 14:03] LABS: BUN CREA RATIO 32.0 (7.0-25.0); CHOL HDL RATIO 4.4 (0-5.0); CREATININE SERUM 1.58 mg/dL (0.70-1.30); GFR 41.99; GLUCOSE FASTING 186.0 mg/dL (65-100); HDL 30.0 mg/dl (40-60); LDL 63.0 mg/dl (0-130); OSMOLALITY SERUM 318.0 MOSM/KG (275-295); VLDL 37.0 (0-39)
[2025-09-09] MEDS ORDERED: AMINO ACIDS 4.25%/DEXTROSE 10% 2,000 ML CENTRAL SCH (17:00)
[2025-09-09] MEDS ORDERED: AA 5 % NO.6/DEXTROSE 15 % 2,000 ML CENTRAL SCH (17:00)
[2025-09-09] MEDS ORDERED: ACETAZOLAMIDE 250 MG TABLET PO SCH (18:42)
[2025-09-09] MEDS ORDERED: METHYLPREDNISOLONE SOD SUCC 40 MG VIAL IV SCH (18:49)
[2025-09-09 19:32] LABS: ALT/SGPT 36.0 U/L (12-78); AST/SGOT 62.0 U/L (15-37); BILIRUBIN TOTAL 0.65 mg/dL (0.3-1.2); BUN CREA RATIO 37.0 (7.0-25.0); CREATININE SERUM 1.3 mg/dL (0.70-1.30); GFR 52.59; GLOBULINA 2.5 G/DL (2.4-3.5); GLUCOSE FASTING 150.0 mg/dL (65-100)
[2025-09-09 19:33] LABS: OSMOLALITY SERUM 315.0 MOSM/KG (275-295)
[2025-09-09 19:38] LABS: PHOSPHOKINASE CREATININE 724.0 U/L (39-308)
[2025-09-09] MEDS ORDERED: MEROPENEM 500 MG/VIAL VIAL IV SCH (21:00)
[2025-09-09] MEDS ORDERED: FAT EMULSIONS 250 ML IV SCH (21:00)
[2025-09-09] MEDS ORDERED: IPRATROPIUM BROMIDE 0.5 MG/2.5 ML AMPUL.NEB IH SCH (21:00)
[2025-09-09 22:36] LABS: ob POSITIVE (NEGATIVE)
[2025-09-10] MEDS ORDERED: LEVALBUTEROL HCL 1.25 MG/3 ML SOLUTION IH SCH (01:00)
[2025-09-10] MEDS ORDERED: LEVALBUTEROL HCL 0.63 MG/3 ML SOLUTION IH ONE (01:07)
[2025-09-10 04:00] VITALS: BP 109/74; O2SAT 100
[2025-09-10] MEDS ORDERED: VANCOMYCIN HCL 5 MG/ML REDILUIDO IV SCH ×2 (05:00→19:45)
[2025-09-10 07:43] VITALS: BP 107/62; O2SAT 100
[2025-09-10 07:46] LABS: BASO % 0.3 % (0.1-1.2); EOS # 0.01 (0.04-0.54); EOS % 0.1 % (0.7-7.0); LYMPH # 0.64 (1.18-3.74); LYMPH % 5.8 % (19.3-53.1); MEAN PLATELET VOLUME 11.70 fl (9.4-12.4); MONO # 0.35 (0.24-0.82); MONO % 3.2 % (4.7-12.5); NEUT # 9.47 (1.56-6.13); NEUT % 86.5 % (34.0-71.1); RED CELL DISTRIBUTION WIDTH 13.2 % (11.6-14.4)
[2025-09-10 08:04] LABS: BUN CREA RATIO 31.0 (7.0-25.0); CREATININE SERUM 1.32 mg/dL (0.70-1.30); GFR 51.67; GLUCOSE FASTING 172.0 mg/dL (65-100); OSMOLALITY SERUM 310.0 MOSM/KG (275-295)
[2025-09-10 10:17] LABS: BAND MAN 1.0 %; LYMPHOCYTE MAN 3.0 %; MONOCYTE MAN 2.0 %; NEUTROPHILS MAN 91.0 %
[2025-09-10 12:00] VITALS: BP 123/72; O2SAT 100
[2025-09-10] MEDS ORDERED: OCTREOTIDE ACETATE 1,250 MCG in 0.9 % SODIUM CHLORIDE 250 ML IV SCH (12:00)
[2025-09-10] MEDS ORDERED: OCTREOTIDE ACETATE 5MCG/ML REDILUIDO IV SCH (13:00)
[2025-09-10] MEDS ORDERED: ACETAZOLAMIDE SODIUM 500 MG VIAL IV SCH (13:00)
[2025-09-10] MEDS ORDERED: WATER IV SCH (13:30)
[2025-09-10] MEDS ORDERED: OCTREOTIDE ACETATE IV SCH (13:30)
[2025-09-10] MEDS ORDERED: DEXTROSE 5% IV SCH (13:30)
[2025-09-10 15:19] VITALS: BP 129/56; O2SAT 95
[2025-09-10] MEDS ORDERED: AMINO ACIDS 4.25%/DEXTROSE 10% 1,000 ML CENTRAL SCH (17:00)
[2025-09-10 20:00] VITALS: BP 120/64; O2SAT 100
[2025-09-10 23:47] VITALS: BP 105/60; O2SAT 100
[2025-09-11 04:00] VITALS: BP 121/63; O2SAT 100
[2025-09-11 07:44] VITALS: BP 128/91; O2SAT 96
[2025-09-11 12:00] VITALS: BP 127/82; O2SAT 96
[2025-09-11] MEDS ORDERED: INSULIN NPH HUMAN ISOPHANE 1,000 UNITS/10 ML UNITS SUBCUTANEO SCH (13:00)
[2025-09-11 15:20] VITALS: BP 114/67; O2SAT 100
[2025-09-11 20:00] VITALS: BP 133/61; O2SAT 100
[2025-09-11 23:09] LABS: BASO % 0.3 % (0.1-1.2); EOS # 0.02 (0.04-0.54); EOS % 0.2 % (0.7-7.0); LYMPH # 1.38 (1.18-3.74); LYMPH % 11.7 % (19.3-53.1); MEAN PLATELET VOLUME 11.30 fl (9.4-12.4); MONO # 0.94 (0.24-0.82); MONO % 8.0 % (4.7-12.5); NEUT # 8.98 (1.56-6.13); NEUT % 76.1 % (34.0-71.1); RED CELL DISTRIBUTION WIDTH 14.3 % (11.6-14.4)
[2025-09-11 23:13] VITALS: BP 121/73; O2SAT 99
[2025-09-11 23:30] LABS: BUN CREA RATIO 30.0 (7.0-25.0); CREATININE SERUM 1.09 mg/dL (0.70-1.30); GFR 64.45; GLUCOSE FASTING 180.0 mg/dL (65-100); OSMOLALITY SERUM 312.0 MOSM/KG (275-295)
[2025-09-11] MEDS ORDERED: DEXTROSE 10 % IN WATER 1,000 ML IV SCH (23:45)
[2025-09-12] MEDS ORDERED: POTASSIUM CHLORIDE IN WATER 100 ML IV SCH (01:00)
[2025-09-12 06:39] LABS: BASO % 0.3 % (0.1-1.2); EOS # 0.07 (0.04-0.54); EOS % 0.7 % (0.7-7.0); LYMPH # 1.28 (1.18-3.74); LYMPH % 12.1 % (19.3-53.1); MEAN PLATELET VOLUME 11.60 fl (9.4-12.4); MONO # 0.89 (0.24-0.82); MONO % 8.4 % (4.7-12.5); NEUT # 7.88 (1.56-6.13); NEUT % 74.3 % (34.0-71.1); RED CELL DISTRIBUTION WIDTH 14.2 % (11.6-14.4)
[2025-09-12 07:06] LABS: ALT/SGPT 64.0 U/L (12-78); AST/SGOT 78.0 U/L (15-37); BILIRUBIN TOTAL 0.59 mg/dL (0.3-1.2); BUN CREA RATIO 30.0 (7.0-25.0); CHOL HDL RATIO 4.3 (0-5.0); CREATININE SERUM 0.99 mg/dL (0.70-1.30); GFR 72.02; GLOBULINA 2.4 G/DL (2.4-3.5); HDL 27.0 mg/dl (40-60); LDL 54.0 mg/dl (0-130); VLDL 35.0 (0-39)
[2025-09-12 07:08] LABS: INR 1.01
[2025-09-12 07:13] LABS: OSMOLALITY SERUM 309.0 MOSM/KG (275-295)
[2025-09-12 07:14] LABS: GLUCOSE FASTING 260.0 mg/dL (65-100)
[2025-09-12 07:23] LABS: BAND MAN 2.0 %; LYMPHOCYTE MAN 9.0 %; MONOCYTE MAN 6.0 %; NEUTROPHILS MAN 83.0 %
[2025-09-12 07:45] VITALS: BP 147/74; O2SAT 100
[2025-09-12 12:00] VITALS: BP 98/71; O2SAT 100
[2025-09-12] MEDS ORDERED: INSULIN NPH HUMAN ISOPHANE 1,000 UNITS/10 ML UNITS SUBCUTANEO SCH (13:00)
[2025-09-12 15:17] VITALS: BP 103/68; O2SAT 96
[2025-09-12 20:00] VITALS: BP 127/68; O2SAT 98
[2025-09-12] MEDS ORDERED: PANTOPRAZOLE SODIUM 80 MG in 0.9 % SODIUM CHLORIDE 100 ML IV SCH (20:45)
[2025-09-12 23:09] VITALS: BP 128/78; O2SAT 100
[2025-09-13 04:00] VITALS: BP 116/70; O2SAT 100
[2025-09-13 07:07] VITALS: BP 105/73; O2SAT 99
[2025-09-13 08:44] LABS: UREA CLEARANCE 34.8 ML/MIN
[2025-09-13] MEDS ORDERED: LEVALBUTEROL HCL 0.63 MG/3 ML SOLUTION IH NR (09:00)
[2025-09-13] MEDS ORDERED: IPRATROPIUM BROMIDE 0.5 MG/2.5 ML AMPUL.NEB IH NR (09:00)
[2025-09-13] MEDS ORDERED: IPRATROPIUM BROMIDE 0.5 MG/2.5 ML AMPUL.NEB IH SCH (14:00)
[2025-09-13] MEDS ORDERED: LEVALBUTEROL HCL 0.63 MG/3 ML SOLUTION IH SCH (14:00)
[2025-09-13 15:37] VITALS: BP 153/78; O2SAT 100
[2025-09-13 20:00] VITALS: BP 119/85; O2SAT 97
[2025-09-13] MEDS ORDERED: AMIODARONE HCL 900 MG/500 ML KIT IV ONE (21:09)
[2025-09-13] MEDS ORDERED: AMIODARONE HCL 50 MG/ML AMPUL IV ONE ×2 (21:09→22:15)
[2025-09-13 22:00] VITALS: BP 123/80; O2SAT 100
[2025-09-13] MEDS ORDERED: AMIODARONE HCL 900 MG in DEXTROSE 5 % IN WATER 500 ML IV SCH (22:15)
[2025-09-13 23:26] VITALS: BP 118/70; O2SAT 94
[2025-09-14] VITALS (20 sets, daily range): BP systolic 103–133; BP diastolic 55–95; O2SAT 95–100
[2025-09-14 06:53] LABS: BASO % 0.5 % (0.1-1.2); EOS # 0.34 (0.04-0.54); EOS % 3.4 % (0.7-7.0); LYMPH # 1.36 (1.18-3.74); LYMPH % 13.7 % (19.3-53.1); MEAN PLATELET VOLUME 12.00 fl (9.4-12.4); MONO # 0.80 (0.24-0.82); MONO % 8.1 % (4.7-12.5); NEUT # 6.89 (1.56-6.13); NEUT % 69.5 % (34.0-71.1); RED CELL DISTRIBUTION WIDTH 14.0 % (11.6-14.4)
[2025-09-14 07:16] LABS: ALT/SGPT 45.0 U/L (12-78); AST/SGOT 42.0 U/L (15-37); BILIRUBIN TOTAL 0.98 mg/dL (0.3-1.2); BUN CREA RATIO 27.0 (7.0-25.0); CREATININE SERUM 0.99 mg/dL (0.70-1.30); GFR 72.02; GLOBULINA 2.5 G/DL (2.4-3.5); GLUCOSE FASTING 140.0 mg/dL (65-100); OSMOLALITY SERUM 300.0 MOSM/KG (275-295)
[2025-09-14 07:28] LABS: BAND MAN 6.0 %; EOSINOPHIL MAN 2.0 %; LYMPHOCYTE MAN 9.0 %; METAMYELOCYTE 1.0 %; MONOCYTE MAN 7.0 %; NEUTROPHILS MAN 74.0 %
[2025-09-14] MEDS ORDERED: CHLORHEXIDINE GLUCONATE 120 ML BOTTLE TOP ONE (08:13)
[2025-09-14] MEDS ORDERED: QUETIAPINE FUMARATE 25 MG TABLET PO SCH (09:00)
[2025-09-14] MEDS ORDERED: POTASSIUM PHOS,M-BASIC-D-BASIC 3 MM/ML VIAL IV SCH (11:00)
[2025-09-14] MEDS ORDERED: AMIODARONE HCL 200 MG TABLET PO SCH (18:15)
[2025-09-15 04:00] VITALS: BP 110/66; O2SAT 96
[2025-09-15 07:03] VITALS: BP 126/73; O2SAT 100
[2025-09-15 07:14] LABS: BUN CREA RATIO 24.0 (7.0-25.0); CREATININE SERUM 0.99 mg/dL (0.70-1.30); GFR 72.02; GLUCOSE FASTING 108.0 mg/dL (65-100)
[2025-09-15 07:26] LABS: OSMOLALITY SERUM 304.0 MOSM/KG (275-295)
[2025-09-15] MEDS ORDERED: AMIODARONE HCL 200 MG TABLET PO SCH (09:00)
[2025-09-15 12:14] VITALS: BP 111/71; O2SAT 100
[2025-09-15 15:30] VITALS: BP 102/68; O2SAT 100
[2025-09-15] MEDS ORDERED: DEXTROSE 5 % IN WATER 1,000 ML IV SCH (18:00)
[2025-09-15 20:00] VITALS: BP 118/66; O2SAT 99
[2025-09-15 23:13] VITALS: BP 122/8; O2SAT 98
[2025-09-16 07:06] VITALS: BP 130/78; O2SAT 100
[2025-09-16 12:00] VITALS: BP 125/79; O2SAT 100
[2025-09-16 15:46] VITALS: BP 126/87; O2SAT 100
[2025-09-16 20:00] VITALS: BP 126/87; O2SAT 100
[2025-09-16 23:34] VITALS: BP 135/70; O2SAT 100
[2025-09-17 04:00] VITALS: BP 122/86; O2SAT 97
[2025-09-17 07:04] VITALS: BP 142/99
[2025-09-17 12:00] VITALS: BP 127/87; O2SAT 100
[2025-09-17 15:10] VITALS: BP 112/81; O2SAT 99
[2025-09-17 20:00] VITALS: BP 127/74; O2SAT 97
[2025-09-17 23:34] VITALS: BP 127/74; O2SAT 99
[2025-09-18 04:00] VITALS: BP 130/94; O2SAT 100
[2025-09-18 07:47] VITALS: BP 128/68; O2SAT 100
[2025-09-18 08:47] LABS: ALT/SGPT 31.0 U/L (12-78); AST/SGOT 35.0 U/L (15-37); BILIRUBIN TOTAL 1.11 mg/dL (0.3-1.2); BUN CREA RATIO 10.0 (7.0-25.0); CREATININE SERUM 0.83 mg/dL (0.70-1.30); GFR 88.27; GLOBULINA 2.5 G/DL (2.4-3.5); GLUCOSE FASTING 125.0 mg/dL (65-100); OSMOLALITY SERUM 290.0 MOSM/KG (275-295)
[2025-09-18 12:00] VITALS: BP 118/95; O2SAT 97
[2025-09-18 15:15] VITALS: BP 127/60; O2SAT 99
[2025-09-18 18:00] VITALS: BP 125/71; O2SAT 99
[2025-09-19 00:31] VITALS: BP 124/67; O2SAT 96
[2025-09-19 08:00] VITALS: BP 134/81; O2SAT 100
[2025-09-19 17:38] VITALS: BP 126/74; O2SAT 95
[2025-09-20 02:11] VITALS: BP 132/66; O2SAT 99
[2025-09-20 07:00] LABS: BASO % 0.8 % (0.1-1.2); EOS # 0.06 (0.04-0.54); EOS % 0.8 % (0.7-7.0); LYMPH # 1.10 (1.18-3.74); LYMPH % 15.6 % (19.3-53.1); MEAN PLATELET VOLUME 11.70 fl (9.4-12.4); MONO # 0.80 (0.24-0.82); MONO % 11.3 % (4.7-12.5); NEUT # 5.01 (1.56-6.13); NEUT % 71.1 % (34.0-71.1); RED CELL DISTRIBUTION WIDTH 13.9 % (11.6-14.4)
[2025-09-20 07:21] LABS: ALT/SGPT 27.0 U/L (12-78); AST/SGOT 31.0 U/L (15-37); BILIRUBIN TOTAL 1.02 mg/dL (0.3-1.2); BUN CREA RATIO 7.0 (7.0-25.0); CREATININE SERUM 0.98 mg/dL (0.70-1.30); GFR 72.87; GLOBULINA 2.8 G/DL (2.4-3.5); GLUCOSE FASTING 95.0 mg/dL (65-100); OSMOLALITY SERUM 283.0 MOSM/KG (275-295)
[2025-09-20 08:00] VITALS: BP 148/70; O2SAT 96
[2025-09-20 16:00] VITALS: BP 116/60; O2SAT 97
[2025-09-20 23:47] VITALS: BP 118/69; O2SAT 95
[2025-09-21] MEDS ORDERED: SODIUM CHLORIDE 0.45 % 1,000 ML IV SCH (01:30)
[2025-09-21 08:00] VITALS: BP 139/71; O2SAT 94
[2025-09-21 16:00] VITALS: BP 155/83; O2SAT 95
[2025-09-22 00:30] VITALS: BP 147/79; O2SAT 95
[2025-09-22 08:52] VITALS: BP 133/70; O2SAT 96
[2025-09-22 16:11] VITALS: BP 144/65; O2SAT 96
[2025-09-23 00:30] VITALS: BP 114/57; O2SAT 95
[2025-09-23 08:41] VITALS: BP 125/71; O2SAT 94
[2025-09-23] MEDS ORDERED: DONEPEZIL HCL 5 MG TABLET PO SCH (09:00)
== END 2025-09-23 14:38 | disposition home or self-care (01) | DRG 280 ==
LOC: ER 21:01 → MEDJ 08-31 11:25 → SURH 08-31 11:25 → MEDJ 09-01 09:51 → ICU 09-06 01:26 → SURH 09-18 17:42
PROVIDERS: General Practice; Internal Medicine; Internal Medicine Infectious Disease; Internal Medicine Nephrology; Student in an Organized Health Care Education/Training Program; ADMIT Internal Medicine; ATTEND Internal Medicine
PROC: BW28ZZZ Computerized Tomography (CT Scan) of Head (ICD-10-PCS; 2025-08-30)
PROC: BW24ZZZ Computerized Tomography (CT Scan) of Chest and Abdomen (ICD-10-PCS; 2025-08-30)
PROC: B24BZZZ Ultrasonography of Heart with Aorta (ICD-10-PCS; 2025-08-31)
PROC: 4A12X4Z Monitoring of Cardiac Electrical Activity, External Approach (ICD-10-PCS; 2025-08-31)
PROC: 5A1945Z Respiratory Ventilation, 24-96 Consecutive Hours (ICD-10-PCS; principal; 2025-09-05)
PROC: 0BH17EZ Insertion of Endotracheal Airway into Trachea, Via Natural or Artificial Opening (ICD-10-PCS; 2025-09-05)
PROC: BW28ZZZ Computerized Tomography (CT Scan) of Head (ICD-10-PCS; 2025-09-05)
PROC: 05H633Z Insertion of Infusion Device into Left Subclavian Vein, Percutaneous Approach (ICD-10-PCS; 2025-09-07)
PROC: B547ZZA Ultrasonography of Left Subclavian Vein, Guidance (ICD-10-PCS; 2025-09-07)
PROC: BW21ZZZ Computerized Tomography (CT Scan) of Abdomen and Pelvis (ICD-10-PCS; 2025-09-08)
PROC: 0BP1XDZ Removal of Intraluminal Device from Trachea, External Approach (ICD-10-PCS; 2025-09-09)
PROC: 30233N1 Transfusion of Nonautologous Red Blood Cells into Peripheral Vein, Percutaneous Approach (ICD-10-PCS; 2025-09-10)
DX: I21.4 Non-ST elevation (NSTEMI) myocardial infarction (principal); J69.0 Pneumonitis due to inhalation of food and vomit; R09.2 Respiratory arrest; J90 Pleural effusion, not elsewhere classified; N17.9 Acute kidney failure, unspecified; K92.2 Gastrointestinal hemorrhage, unspecified; E87.0 Hyperosmolality and hypernatremia; I10 Essential (primary) hypertension; S61.512A Laceration without foreign body of left wrist, initial encounter; S61.511A Laceration without foreign body of right wrist, initial encounter; L89.322 Pressure ulcer of left buttock, stage 2; L89.312 Pressure ulcer of right buttock, stage 2; F10.10 Alcohol abuse, uncomplicated; I25.10 Atherosclerotic heart disease of native coronary artery without angina pectoris; R41.82 Altered mental status, unspecified; Z95.1 Presence of aortocoronary bypass graft; E09.65 Drug or chemical induced diabetes mellitus with hyperglycemia; F02.80 Dementia in other diseases classified elsewhere, unspecified severity, without behavioral disturbance, psychotic disturbance, mood disturbance, and anxiety